=== PATIENT | female | born 1980 | race Two or more races ===

== ENCOUNTER 2022-01-30 04:14 | Day surgery (SDC) | payer BC ==
[2022-01-26 16:20] VITALS: BMI 31.8
[2022-01-30] MEDS ORDERED: PROMETHAZINE HCL 25 MG/1 ML VIAL IVPUSH PRN (10:45)
[2022-01-30] MEDS ORDERED: LACTATED RINGERS SOLUTION 1,000 ML IV SCH (10:45)
[2022-01-30] MEDS ORDERED: ONDANSETRON 4 MG/2 ML VIAL IVPUSH PRN (10:45)
[2022-01-30] MEDS ORDERED: oxyCODONE HCL 5 MG TABLET PO PRN (10:45)
[2022-01-30] MEDS ORDERED: MIDAZOLAM HCL 2 MG/2 ML SINGLE DOSE VIAL ONE (10:55)
[2022-01-30] MEDS ORDERED: PROPOFOL 20 ML ONE (10:58)
[2022-01-30] MEDS ORDERED: LIDOCAINE HCL 1%, 10 MG/ML (20ML VIAL) NR ONE (10:59)
[2022-01-30] MEDS ORDERED: ceFAZolin SODIUM 1 GM VIAL IVPB ONE (10:59)
[2022-01-30 14:10] VITALS: RESP 20; TEMP 97.7
[2022-01-30 14:12] VITALS: BP 122/72; PULSE 72
== END 2022-01-30 14:59 | disposition home or self-care (01) ==
LOC: JASU-SURG 04:14
PROVIDERS: ATTEND Surgery
PROC: 0HBT0ZX Excision of Right Breast, Open Approach, Diagnostic (ICD-10-PCS; principal; 2022-01-30 09:30)
DX: N64.89 Other specified disorders of breast (principal)
CPT/HCPCS: 19281; 76098-TC-FY; 81025; 88307-TC; 88342-TC; 94760